=== PATIENT | male | born 1990 | race Caucasian/White ===

== ENCOUNTER 2016-08-16 01:05 | Emergency (ER) | payer MEDICAID, OTHER ==
[~2016-08-16] VITALS: Ht 167.6 cm; Wt 59.0 kg
[2016-08-16 01:10] VITALS: BP 134/65
--- NOTE | 2016-08-16 01:14 | NUR ---
PT TAKEN TO BED 8
--- NOTE | 2016-08-16 01:25 | NUR ---
25 Y/O M HERE W/C/O LEFT CALF PAIN X 2 HOURS AGO, WHILE WORKING OUT THE GYM 03/21 PAIN. NO S/S OF RESP DISTRESS NOTED AT THIS MOMENT. ER AWARED.
--- NOTE | 2016-08-16 01:49 | NUR ---
Dr. Clayton evaluating patient at bedside.
[2016-08-16] MEDS ORDERED: KETOROLAC 30 MG/ML VIAL IM ONE (01:50)
[2016-08-16] MEDS ORDERED: NACL 0.9% 1,000 ML IV ONE ×2 (01:55→03:20)
[2016-08-16] MEDS ORDERED: ONDANSETRON 4 MG/2 ML VIAL IVP ONE (01:55)
[2016-08-16] MEDS ORDERED: MORPHINE SULFATE 2 MG/ML SYR IVP ONE (01:55)
--- NOTE | 2016-08-16 03:05 | NUR ---
Ultrasound at bedside.
--- NOTE | 2016-08-16 03:06 | NUR ---
PT ON BED, ULTRASOUND AT BEDSIDE. PT STATES PAIN HAS DECREASED TO 5/10. VERBALIZES CRAMPING STILL PRESENT ON AFFECTED EXTREMITY. NO S/S OF DISTRESS NOTED AT THE MOMENT. PT ON ACCOUNT ANALYST. ER MD AWARED OF INCREASED HR.
[2016-08-16] MEDS ORDERED: KETOROLAC 30 MG/ML VIAL IVP ONE (03:30)
[2016-08-16 04:35] VITALS: BP 131/79
--- NOTE | 2016-08-16 04:35 | NUR ---
Patient discharged with v/s stable. Written and verbal after care instructions given and explained. Patient alert, oriented and verbalized understanding of instructions. Ambulatory with steady gait. All questions addressed prior to discharge. ID band removed. Patient advised to follow up with PMD OR RETURN TO ER IF CONDITION WORSENS. Rx of FLEXERIL, AND IBUPROFEN given. Patient educated on indication of medication including possible reaction and side effects. Opportunity to ask questions provided and answered.
== END 2016-08-16 04:35 | disposition home or self-care (01) ==
LOC: MED 01:05
DX: S86.812A Strain of other muscle(s) and tendon(s) at lower leg level, left leg, initial encounter (principal); E86.0 Dehydration; R00.0 Tachycardia, unspecified; X58.XXXA Exposure to other specified factors, initial encounter; Y93.89 Activity, other specified; Y92.89 Other specified places as the place of occurrence of the external cause; Y99.8 Other external cause status
CPT/HCPCS: 36415; 80048; 85025; 85379; 93005; 93971; 96361; 96372; 96374; 96375; 99285; J1885; J2270; J2405; J7030; Q0092

== ENCOUNTER 2020-04-16 16:15 | Emergency (ER) | payer MEDICAID, OTHER ==
[~2020-04-16] VITALS: Ht 170.2 cm; Wt 59.9 kg
[2020-04-16 16:29] VITALS: BP 152/86
== END 2020-04-16 16:50 | disposition home or self-care (01) ==
LOC: MED 16:15
DX: R11.2 Nausea with vomiting, unspecified (principal); R19.7 Diarrhea, unspecified; Z20.828 Contact with and (suspected) exposure to other viral communicable diseases; Z87.710 Personal history of (corrected) hypospadias
CPT/HCPCS: 99283